=== PATIENT | female | born 1940 ===

== ENCOUNTER 2017-05-21 01:32 | Inpatient (IN) | payer MEDICARE, MEDICAID ==
[2017-05-21] VITALS (8 sets, daily range): BP systolic 117–143; BP diastolic 41–68
[~2017-05-21] VITALS: Ht 154.9 cm; Wt 97.5 kg
--- NOTE | 2017-05-21 01:48 | NUR ---
PT BIB FAMILY C/O FEVER X3 DAYS. ALSO C/O ABDOMINAL PAIN R/T HERNIA. DAUGHTER STATES PT HAS HX OF CANCER, AND IS BEING TREATED AT [facility], PENDING CHEMO, BUT IS NOT A CANDIDATE FOR SURGERY. PT A&O, AND ANSWERS APPROPRIATELY W/ USE OF RAILROAD CAR LETTERER. USES WHEELCHAIR.
--- NOTE | 2017-05-21 01:56 | NUR ---
JERONIMO PEREZ AT BEDSIDE FOR MSE.
[2017-05-21] MEDS ORDERED: HYDROMORPHONE 1 MG/1 ML DISP.SYRIN IV ONE (02:00)
[2017-05-21] MEDS ORDERED: ONDANSETRON 4 MG/2 ML VIAL IV ONE (02:00)
[2017-05-21] MEDS ORDERED: HYDROMORPHONE 2 MG/1 ML DISP.SYRIN ONE (02:19)
[2017-05-21] MEDS ORDERED: ONDANSETRON 4 MG/2 ML VIAL ONE (02:19)
[2017-05-21] MEDS ORDERED: TDAP DIPH,PERTUSS,TET VAC/PF 0.5 ML DISP.SYRIN IM ONE (02:24)
--- NOTE | 2017-05-21 02:40 | NUR ---
XRAY AT PT BEDSIDE.
[2017-05-21 02:44] LABS: BASOPHILS # (AUTO) 0.1 K/uL (0.0-8.0); BASOPHILS % (AUTO) 0.6 % (0.0-2.0); EOSINOPHILS % (AUTO) 0.3 % (0.0-7.0); HEMATOCRIT 22.6 % (31.2-41.9); LYMPHOCYTES # (AUTO) 1.4 K/uL (20.0-40.0); LYMPHOCYTES % (AUTO) 9.9 % (20.5-51.5); MEAN CORPUSCULAR HEMOGLOBIN 25.3 uug (24.7-32.8); MEAN CORPUSCULAR HGB CONC 32 g/dL (32.3-35.6); MONOCYTES # (AUTO) 0.9 K/uL (2.0-10.0); MONOCYTES % (AUTO) 6.1 % (0.0-11.0); NEUTROPHILS # (AUTO) 11.8 K/uL (1.8-8.9); NEUTROPHILS % (AUTO) 83.1 % (38.5-71.5); PLATELET COUNT (AUTO) 410 K/uL (179-408); RED BLOOD CELL COUNT(AUTO) 2.86 MIL/uL (3.63-4.92)
[2017-05-21 02:52] LABS: HEMOGLOBIN 7.2 g/dL (10.9-14.3)
[2017-05-21 02:54] LABS: WHITE BLOOD COUNT (AUTO) 14.2 K/uL (3.8-11.8)
[2017-05-21 03:00] LABS: ALANINE AMINOTRANSFERASE 22 U/L (14-59); ALKALINE PHOSPHATASE 108 U/L (50-136); ASPARTATE AMINOTRANSFERASE 36 U/L (15-37); BILIRUBIN,DIRECT 0.1 mg/dL (0.0-0.2); BILIRUBIN,TOTAL 0.3 mg/dL (0.2-1.0); CARBON DIOXIDE 23 mmol/L (21-32); CHLORIDE 95 mmol/L (98-107); CREATININE 1.1 mg/dL (0.6-1.3); GLUCOSE 129 mg/dL (74-106); LIPASE 147 U/L (73-393); POTASSIUM 4.4 mmol/L (3.5-5.1); TOTAL PROTEIN, SERUM 7.8 g/dL (6.4-8.2); UREA NITROGEN, BLOOD 21 mg/dL (7-18)
[2017-05-21] MEDS ORDERED: CEFTRIAXONE 1 G VIAL ONE (03:12)
[2017-05-21] MEDS ORDERED: HYDR-3326 PO (03:13)
[2017-05-21] MEDS ORDERED: METFO PO (03:13)
[2017-05-21] MEDS ORDERED: VALS160T2 PO (03:13)
[2017-05-21] MEDS ORDERED: GABA600T2 PO (03:13)
[2017-05-21] MEDS ORDERED: DOCU100C36 PO (03:13)
[2017-05-21] MEDS ORDERED: IBUP-1953 PO (03:13)
[2017-05-21] MEDS ORDERED: ASPI81TA31 PO (03:13)
[2017-05-21] MEDS ORDERED: CEFTRIAXONE 1 G in IV DEXTROSE 5% 50 ML IV ONE (03:15)
[2017-05-21] MEDS ORDERED: METFORMIN HCL PO (03:15)
[2017-05-21] MEDS ORDERED: NORMAL SALINE FLUSH 10 ML DISP.SYRIN ONE (03:34)
[2017-05-21] MEDS ORDERED: IV NORMAL SALINE 100 ML ONE (03:35)
[2017-05-21] MEDS ORDERED: IOHEXOL 300MG/ML 100 ML INFUS..BTL ONE (03:35)
--- NOTE | 2017-05-21 03:52 | NUR ---
PT TAKEN OUT OF ROOM FOR CT BY BREAKER ENGINEER VIA [employer]. VSS. NO DISTRESS NOTED AT THIS TIME.
--- NOTE | 2017-05-21 04:42 | NUR ---
PT RESTING IN A POSITION OF COMFORT W/ EYES CLOSED. NO DISTRESS NOTED. DAUGHTERS AT BEDSIDE.
[2017-05-21] MEDS ORDERED: PIPERACILLIN/TAZOBACTAM/D5W 50 ML IV ONE (05:13)
[2017-05-21] MEDS ORDERED: VANCOMYCIN IV 1,000 MG in IV DEXTROSE 5% 250 ML IV ONE (05:15)
[2017-05-21] MEDS ORDERED: PIPERACILLIN SODIUM/TAZOBACTAM 3.375 G in IV DEXTROSE 5% 50 ML IV ONE (05:15)
--- NOTE | 2017-05-21 05:23 | NUR ---
EPIC PAGED FOR PANEL.
[2017-05-21] MEDS ORDERED: VANCOMYCIN IV 200 ML ONE (05:25)
[2017-05-21] MEDS ORDERED: ACETAMINOPHEN 325 MG TABLET PO PRN (05:45)
[2017-05-21] MEDS ORDERED: Z GUARD REMEDY PASTE 57 GM TUBE TOP PRN (05:45)
[2017-05-21] MEDS ORDERED: MAGNESIUM HYDROXIDE 30 ML LIQUID UDC PO PRN (05:45)
[2017-05-21 07:03] LABS: *BILIRUBIN,URIN NEGATIVE (NEGATIVE); *BLOOD, URINE 2+ (NEGATIVE); *CLARITY,URINE CLOUDY (CLEAR); *COLOR,URINE YELLOW (YELLOW); *KETONES,URINE NEGATIVE (NEGATIVE); *PROTEIN,URINE NEGATIVE (NEGATIVE); *UROBILINOGEN,URINE 0.2 E.U./dl (NORMAL); LEUKOCYTE ESTERASE ,URINE 2+ (NEGATIVE); NITRITE, URINE NEGATIVE (NEGATIVE); UGLUCOSE NEGATIVE (NEGATIVE)
[2017-05-21 07:17] LABS: BACTERIA,URINE FEW /HPF (NONE SEEN); SQUAMOUS EPITHELIAL CELL,UR MODERATE /HPF (NONE SEEN)
[2017-05-21 07:20] LABS: TRANSITIONAL EPI CELLS,URINE FEW /LPF (NONE SEEN)
[2017-05-21] MEDS: IV NS 1000 ML 1,000 ML IV PRN (08:08)
[2017-05-21] MEDS: MORPHINE SULFATE 4 MG/1 ML DISP.SYRIN IV PRN ×2 (08:09→12:14)
[2017-05-21] MEDS ORDERED: PANTOPRAZOLE SODIUM 40 MG VIAL IV SCH (09:00)
--- NOTE | 2017-05-21 09:52 | NUR ---
Clinical pharmacy note-Vancomycin dosing per pharmacy Subjective: To start Vancomycin dosing on this 76 yo female patient for Cellulitis of abdominal wall. Objective: BUN 21 Scr 1.1 WBC 14.2 Temp 99.4 Ht 154.9 cm Wt 97.5 kg Assessment/Plan: Patient received vanco 1gm IV x1 today at 0600 in ED. Will start vanco 1250mg IVPB q24h for predicted vanco trough level of 17.4 mcg/ml at steady state. 1st dose of this regimen is due tomorrow at 0200. Will draw trough by 4th dose(not ordered yet). Will monitor renal function & will adjust the dose if needed. Will monitor daily.
[2017-05-21] MEDS ORDERED: DEXTROSE 50% 50 ML DISP.SYRIN IV PRN (12:00)
[2017-05-21] MEDS: PIPERACILLIN/TAZOBACTAM/D5W 50 ML IV SCH ×3 (12:11→23:36)
[2017-05-21] MEDS: GABAPENTIN 100 MG CAPSULE PO SCH ×2 (14:39→17:00)
[2017-05-21] MEDS: INSULIN REGULAR, HUMAN 300 UNIT/3 ML VIAL SQ PRN ×2 (16:58→20:18)
[2017-05-21] MEDS: BLOOD SUGAR DIAGNOSTIC 1 EACH STRIP VI SCH ×2 (16:59→20:23)
--- NOTE | 2017-05-21 19:30 | NUR ---
PT IN ROOM ALERT AWAKE IN NO ACUTE DISTRESS WITH DAUGHTER AT BEDSIDE. DENIES ANY PAIN OR DISCOMFORT AT THIS TIME. DAUGHTER STATES PT IS SOMETIMES ANXIOUS AND NEEDS MEDICATION FOR TONIGHT. NO S/S OF HYPER/HYPOGLYCEMIA. PT REMINDED TO CALL FOR ASSISTANCE WHEN NEEDED. CALL LIGHT PLACED WITHIN REACH. CONTINUE TO MONITOR. IV HYDRATION NS NOTED TO LEFT AC.
[2017-05-21] MEDS: PANTOPRAZOLE SODIUM 40 MG VIAL IV SCH (20:21)
[2017-05-21] MEDS: LORAZEPAM 1 MG TABLET PO PRN (20:23)
[2017-05-21] MEDS: HYDROCODONE/APAP 5-325MG TABLET PO PRN (22:13)
[2017-05-22] VITALS: BP 116/50
[2017-05-22] MEDS: VANCOMYCIN IV 1,250 MG in IV NORMAL SALINE 500 ML IV SCH (02:04)
--- NOTE | 2017-05-22 02:15 | NUR ---
PT IN ROOM IN NO ACUTE DISTRESS. STATES LOWER ABDOMINAL PAIN AND DAUGHTER AT BEDSIDE STATES PT MAY NEED PAIN MEDICATION. NO REACTION TO RECENT ZOSYN IV THERAPY. NEXT IV ATB VANCOMYCIN TO BE GIVEN ROUTINE. CONTINUE TO MONITOR. CALL LIGHT PLACED WITHIN REACH.
[2017-05-22] MEDS: HYDROCODONE/APAP 5-325MG TABLET PO PRN ×3 (02:19→23:55)
[2017-05-22] MEDS: IV NS 1000 ML 1,000 ML IV PRN ×2 (02:35→23:46)
[2017-05-22 04:00] VITALS: BP 121/50
[2017-05-22] MEDS: PIPERACILLIN/TAZOBACTAM/D5W 50 ML IV SCH ×4 (05:08→23:45)
--- NOTE | 2017-05-22 06:00 | NUR ---
PT IN ROOM ALERT AWAKE IN NO ACUTE DISTRESS. NO REACTION TO RECENT IV VANCOMYCIN AND ZOSYN THERAPY. LOWER ABDOMINAL PAIN RELIEVED FROM PREVIOUS NORCO GIVEN. V/S ARE WNL. DAUGHTER AT BEDSIDE. HOB ELEVATED 30 DEGREES AND CALL LIGHT PLACED WITHIN REACH. NO S/S OF HYPER/HYPOGLYCEMIA. CONTACT LENS LATHE OPERATOR NOTED SINUS RHYTHM. CONTINUE TO MONITOR.
[2017-05-22 06:20] LABS: BASOPHILS % (AUTO) 0.3 % (0.0-2.0); EOSINOPHILS % (AUTO) 0.2 % (0.0-7.0); HEMATOCRIT 23.5 % (31.2-41.9); HEMOGLOBIN 7.7 g/dL (10.9-14.3); LYMPHOCYTES # (AUTO) 1.1 K/uL (20.0-40.0); LYMPHOCYTES % (AUTO) 7.1 % (20.5-51.5); MEAN CORPUSCULAR HGB CONC 33 g/dL (32.3-35.6); MEAN CORPUSCULAR VOLUME 79.6 fL (75.5-95.3); MONOCYTES # (AUTO) 0.8 K/uL (2.0-10.0); MONOCYTES % (AUTO) 5.2 % (0.0-11.0); NEUTROPHILS % (AUTO) 87.2 % (38.5-71.5); PLATELET COUNT (AUTO) 359 K/uL (179-408); RED BLOOD CELL COUNT(AUTO) 2.96 MIL/uL (3.63-4.92); WHITE BLOOD COUNT (AUTO) 14.9 K/uL (3.8-11.8)
[2017-05-22 06:31] LABS: CARBON DIOXIDE 25 mmol/L (21-32); CHLORIDE 98 mmol/L (98-107); CHOLESTEROL 120 mg/dL (<200); GLUCOSE 145 mg/dL (74-106); HDL CHOLESTEROL 25 mg/dL (40-60); MAGNESIUM 1.7 mg/dL (1.8-2.4); PHOSPHOROUS 4.6 mg/dL (2.5-4.9); POTASSIUM 3.7 mmol/L (3.5-5.1); TRIGLYCERIDES 123 MG/DL (30-150); UREA NITROGEN, BLOOD 12 mg/dL (7-18)
[2017-05-22 06:39] LABS: THYROID STIMULATING HORMONE 5.667 mIU/mL (0.358-3.740)
[2017-05-22] MEDS: PANTOPRAZOLE SODIUM 40 MG VIAL IV SCH ×2 (08:32→21:36)
[2017-05-22] MEDS: GABAPENTIN 100 MG CAPSULE PO SCH ×3 (08:32→17:29)
[2017-05-22] MEDS: BLOOD SUGAR DIAGNOSTIC 1 EACH STRIP VI SCH ×4 (08:32→21:42)
[2017-05-22] MEDS: VALSARTAN 160 MG TABLET PO SCH ×2 (08:36→09:19)
[2017-05-22 11:30] VITALS: BP 104/40
[2017-05-22] MEDS: INSULIN REGULAR, HUMAN 300 UNIT/3 ML VIAL SQ PRN (11:54)
[2017-05-22] MEDS: MAGNESIUM SULFATE/D5W 100 ML IV SCH ×2 (12:44→13:55)
--- NOTE | 2017-05-22 13:51 | NUR ---
Clinical pharmacy note-Vancomycin dosing per pharmacy Subjective: To continue Vancomycin dosing on this 76 yo female patient for Cellulitis of abdominal wall. Objective: BUN 12 Scr 1.0 WBC 14.9 Temp 98.7 Ht 154.9 cm Wt 97.5 kg Assessment/Plan: Will continue vanco 1250mg IVPB q24h for predicted vanco trough level of 17.4 mcg/ml at steady state. 2nd dose due tomorrow am at 0200. Will draw trough by 4th dose(not ordered yet). Will monitor renal function & will adjust the dose if needed. Will monitor daily.
[2017-05-22 16:00] VITALS: BP 139/61
--- NOTE | 2017-05-22 17:52 | NUR ---
Patient resting in bed, in no distress. IVF infusing, no infiltration noted. Pain management and accucheck as ordered. VS stable, pt is afebrile. Assisted patient with toileting needs, commode at bedside. Family at bedside. Safety measures in place, call light within reach. Will continue to monitor.
[2017-05-22] MEDS: DOCUSATE SODIUM 100 MG CAPSULE PO PRN (18:19)
[2017-05-22] MEDS: ONDANSETRON 4 MG/2 ML VIAL IV PRN (18:35)
[2017-05-22] MEDS: FERROUS GLUCONATE 324 MG TABLET PO SCH ×2 (18:57→21:36)
[2017-05-22 20:00] VITALS: BP 136/53
[2017-05-22 20:49] VITALS: BP 136/53
[2017-05-22] MEDS: LORAZEPAM 1 MG TABLET PO PRN (21:36)
[2017-05-23] MEDS: VANCOMYCIN IV 1,250 MG in IV NORMAL SALINE 500 ML IV SCH (00:59)
[2017-05-23 04:00] VITALS: BP 102/42
--- NOTE | 2017-05-23 05:00 | NUR ---
RECEIVED HANDSOFF REPORT FROM JUVENTINO ABREU. DAUGHTER AT BEDSIDE. PT AWAKE. NO SIGNS OF DISTRESS. WILL CONTINUE TO MONITOR, SAFETY AND COMFORT PROVIDED.
[2017-05-23] MEDS: PIPERACILLIN/TAZOBACTAM/D5W 50 ML IV SCH ×4 (05:18→23:19)
[2017-05-23] MEDS: BLOOD SUGAR DIAGNOSTIC 1 EACH STRIP VI SCH ×3 (07:36→16:30)
[2017-05-23] MEDS: GABAPENTIN 100 MG CAPSULE PO SCH ×3 (10:00→17:46)
--- NOTE | 2017-05-23 10:30 | NUR ---
RECEIVED PT AOX4, PT WAS ABLE TO HAVE BOWEL MOVEMENT TODAY ON BSC. STOOL OB SENT TO LAB. VSS, NO C/O PAIN AND OR DISCOMFORT AT THIS TIME, FAMILY IS REQUESTING DOCTOR CALL SON, FOR VIABLE INFORMATION.
[2017-05-23] MEDS: VALSARTAN 160 MG TABLET PO SCH (10:31)
[2017-05-23] MEDS: FERROUS GLUCONATE 324 MG TABLET PO SCH ×2 (10:31→20:49)
[2017-05-23] MEDS: CYANOCOBALAMIN 1,000 MCG TABLET PO SCH (10:32)
[2017-05-23] MEDS: PANTOPRAZOLE SODIUM 40 MG VIAL IV SCH ×2 (10:36→20:49)
[2017-05-23 11:20] VITALS: BP 110/48
--- NOTE | 2017-05-23 12:32 | NUR ---
Clinical pharmacy note-Vancomycin dosing per pharmacy Subjective: To continue Vancomycin dosing on this 76 yo female patient for Cellulitis of abdominal wall. Objective: BUN 12 (05/22) Scr 1.0 (05/22) WBC 14.9 (05/22) Temp 99.2 Ht 154.9 cm Wt 97.5 kg Assessment/Plan: Will continue same dose of vanco 1250mg IVPB q24h for today. 3rd dose due tomorrow am at 0200. Will draw trough by 4th dose(not ordered yet). Will monitor renal function & will adjust the dose if needed. Will monitor daily.
[2017-05-23 12:55] LABS: *OCCULT BLOOD STOOL POSITIVE (NEGATIVE)
[2017-05-23] MEDS: HYDROCODONE/APAP 5-325MG TABLET PO PRN ×2 (15:35→16:37)
--- NOTE | 2017-05-23 15:36 | NUR ---
C/O 10/10 ABD PAIN, NORCO GIVEN, WILL F/U WITH PAIN ASSESSMENT.
[2017-05-23 15:48] VITALS: BP 122/54
--- NOTE | 2017-05-23 16:38 | NUR ---
2/10 ABD PAIN, PATIENT RESTING IN BED, FAMILY AT BEDSIDE.WILL CONTINUE TO MONITOR FOR SAFETY.
--- NOTE | 2017-05-23 18:09 | NUR ---
PT FAMILY HAS DECIDED NOT TO CONSENT FOR EGD FOR PEG PLACEMNT, PATIENT IS EATING AND IS MORE ALERT. Addendum: 05/23/17 at 1812 by PATRICK WALKER LVN DISREGARD LAST NOTE, THIS IS FOR ANOTHER PATIENT.
--- NOTE | 2017-05-23 18:13 | NUR ---
PT IS POSITIVE FOR OCCULT BLOOD IN STOOL, CHELE AWARE.
[2017-05-23] MEDS: FLUCONAZOLE 200 MG/NS 100ML IV 100 MG in PREMIXED 1 EACH IV SCH (20:39)
[2017-05-23 20:48] VITALS: BP 106/42
[2017-05-24] VITALS (10 sets, daily range): BP systolic 112–151; BP diastolic 31–56
[2017-05-24] MEDS: VANCOMYCIN IV 1,250 MG in IV NORMAL SALINE 500 ML IV SCH (01:20)
[2017-05-24] MEDS: PIPERACILLIN/TAZOBACTAM/D5W 50 ML IV SCH ×4 (05:03→18:00)
[2017-05-24] MEDS: DOCUSATE SODIUM 100 MG CAPSULE PO PRN (05:13)
[2017-05-24] MEDS: HYDROCODONE/APAP 5-325MG TABLET PO PRN ×2 (05:16→12:33)
[2017-05-24] MEDS: ONDANSETRON 4 MG/2 ML VIAL IV PRN (05:29)
--- NOTE | 2017-05-24 06:17 | NUR ---
Patient slept intermittently throughout the night with daughter at bedside. Complained of "discomfort" at IV site to right antecubital, but is not painful. Patient agreed to keep IV in place to run the antibiotics overnight and will try to place a new IV at a different site in the morning. Although pt had a BM, unable to get stool sample due to contamination with urine. Assist to bedside commode as needed. Administered PRN Ramsay and Colace for pain and constipation. Pt complained the Colace gives her nausea so requests to not take it anymore. Zofran administered and effective.
--- NOTE | 2017-05-24 06:49 | NUR ---
Received a call from Lab stating pt's hemoglobin is 6.8 from this morning's draw. Patient is not currently bleeding and no bleeding was noted when wiping patient after her bowel movement. Lab will come back and redraw the labs. Will endorse to AM nurse.
[2017-05-24 06:57] LABS: ALANINE AMINOTRANSFERASE 13 U/L (14-59); ALKALINE PHOSPHATASE 95 U/L (50-136); ASPARTATE AMINOTRANSFERASE 22 U/L (15-37); BILIRUBIN,TOTAL 0.5 mg/dL (0.2-1.0); CARBON DIOXIDE 24 mmol/L (21-32); CHLORIDE 98 mmol/L (98-107); GLUCOSE 135 mg/dL (74-106); MAGNESIUM 1.6 mg/dL (1.8-2.4); PHOSPHOROUS 3.2 mg/dL (2.5-4.9); POTASSIUM 3.5 mmol/L (3.5-5.1); TOTAL PROTEIN, SERUM 6.5 g/dL (6.4-8.2); UREA NITROGEN, BLOOD 9 mg/dL (7-18)
--- NOTE | 2017-05-24 08:30 | NUR ---
AWAKE COOPERATE WELL NO SOB OR PAIN AT THIS TIME RESTING WITH BED ALARM ON AND CALL LIGHT IN REACH
[2017-05-24] MEDS: PANTOPRAZOLE SODIUM 40 MG VIAL IV SCH ×4 (08:47→20:30)
[2017-05-24] MEDS: GABAPENTIN 100 MG CAPSULE PO SCH ×3 (08:47→17:02)
[2017-05-24] MEDS: FERROUS GLUCONATE 324 MG TABLET PO SCH ×2 (08:47→20:30)
[2017-05-24] MEDS: CYANOCOBALAMIN 1,000 MCG TABLET PO SCH (08:47)
--- NOTE | 2017-05-24 09:00 | NUR ---
DR LUEVANO WAS INFORM OF AM LAB RESULT AND IV WAS OUT ,UNABLE TO RESTART IT MID LINE INSERTION WAS ORDER
[2017-05-24 10:01] LABS: MONOCYTES # (AUTO) 0.6 K/uL (2.0-10.0)
[2017-05-24 10:02] LABS: BASOPHILS # (AUTO) 0.1 K/uL (0.0-8.0); BASOPHILS % (AUTO) 0.4 % (0.0-2.0); EOSINOPHILS % (AUTO) 0.2 % (0.0-7.0); HEMATOCRIT 22.9 % (31.2-41.9); LYMPHOCYTES # (AUTO) 1.2 K/uL (20.0-40.0); LYMPHOCYTES % (AUTO) 8.4 % (20.5-51.5); MEAN CORPUSCULAR HEMOGLOBIN 26.1 uug (24.7-32.8); MEAN CORPUSCULAR HGB CONC 33 g/dL (32.3-35.6); MEAN CORPUSCULAR VOLUME 79.4 fL (75.5-95.3); MONOCYTES % (AUTO) 4.2 % (0.0-11.0); NEUTROPHILS # (AUTO) 12.3 K/uL (1.8-8.9); NEUTROPHILS % (AUTO) 86.8 % (38.5-71.5); PLATELET COUNT (AUTO) 397 K/uL (179-408); RED BLOOD CELL COUNT(AUTO) 2.89 MIL/uL (3.63-4.92); WHITE BLOOD COUNT (AUTO) 14.1 K/uL (3.8-11.8)
[2017-05-24 10:09] LABS: HEMOGLOBIN 7.5 g/dL (10.9-14.3)
[2017-05-24] MEDS ORDERED: FUROSEMIDE 20 MG/2 ML VIAL IV PRN (10:30)
--- NOTE | 2017-05-24 12:00 | NUR ---
PATIENT AND FAMILY WAS TOLD TO WAITING MIDLINE NURSE FOR PROCEDURE AND WILL GIVE ANTIBIOTICS MEDICINE AND TRANSFUSION 1 UNIT OF PRBC TODAY CONSENT WAS SIGNS
--- NOTE | 2017-05-24 14:18 | NUR ---
Clinical pharmacy note-Vancomycin dosing per pharmacy Subjective: To continue Vancomycin dosing on this 76 yo female patient for Cellulitis of abdominal wall. Objective: BUN 9 Scr 1.0 WBC 14.1 Temp 99.2 Ht 154.9 cm Wt 97.5 kg Assessment/Plan: Will continue same dose of vanco 1250mg IVPB q24h for today. Trough due tomorrow early am at 0130, RN endorsed to hold dose if >20. Will check level in am and adjust as needed. Will monitor renal function & will adjust the dose if needed. Will monitor daily.
[2017-05-24] MEDS: MAGNESIUM SULFATE/D5W 100 ML IV SCH ×2 (15:15→16:25)
--- NOTE | 2017-05-24 15:50 | NUR ---
START BLOOD TRANSFUSION CHERYL PROCEDURE WELL NO REACTION NOTED RESTING VS STABLE
--- NOTE | 2017-05-24 17:30 | NUR ---
MOST OF THE TIME RESTING WELL NO SOB OR PAIN HEMODYNAMIC STATUS STABLE PAIN UNDER CONTROL ON FALL /ASPIRATION PRECAUTION BED ALARM ON AND CALL MATOS WITHIN REACH
--- NOTE | 2017-05-24 18:40 | NUR ---
BLLOD TRANSFUSION COMPLETE NO REACTION VS TAKEN STABLE LASIX IVP GIVEN ORDER AFTER BLOOD COMPLETE
[2017-05-24] MEDS: FLUCONAZOLE 200 MG/NS 100ML IV 100 MG in PREMIXED 1 EACH IV SCH (18:46)
--- NOTE | 2017-05-24 19:45 | NUR ---
RECEIVED PATIENT IN BED, NO SOB NO CHEST PAIN, NO COMPLAIN OF PAIN AT THIS TIME. SEEN BY ZACARIAS PACK WANTED GI CONSULTS, NOTIFY DR. ELAINE SAID OK. FAMILY AT BEDSIDE. MIDLINE ON R UPPER ARM PATENT, CONT TO MONITOR.
[2017-05-24] MEDS ORDERED: LEVOFLOXACIN 500 MG/D5W 100 ML ONE (22:48)
[2017-05-24] MEDS: LEVOFLOXACIN 500 MG/D5W 500 MG in PREMIXED 1 EACH IV SCH (23:05)
[2017-05-24] MEDS: IV NS 1000 ML 1,000 ML IV PRN (23:10)
[2017-05-24] MEDS: LINEZOLID IV 600 MG in PREMIXED 1 EACH IV SCH (23:58)
[2017-05-25] MEDS: HYDROCODONE/APAP 5-325MG TABLET PO PRN ×4 (01:57→23:10)
[2017-05-25 04:42] VITALS: BP 105/50
--- NOTE | 2017-05-25 06:25 | NUR ---
PATIENT SLEPT MOST OF THE NIGHT, NO SOB NO CHEST PAIN, MEDICATED ONE TIME OF ABDOMINAL PAIN, PERMA CATH ON R SUBCLAVIAN SITE INTACT, NO BLEEDING NOTED, STAFFORD CATH PATENT DRAINING WITH YELLOW COLOR URINE IN MODERATE AMOUNT, NO S/S OF HYPO/HYPERGLYCEMIA NOTED, OXYGEN SAT WNL NO SOB NOTED, CONT TO MONITOR. Addendum: 05/25/17 at 0657 by DANIEL CARLOS RN PATIENT SLEPT MOST OF NIGHT NO SOB NO CHEST PAIN, MEDICATED ONE TIME OF ABDOMINAL PAIN, PERMA CATH ON R SUBCLAVIAN SITE INTACT, NO BLEEDING NOTED, STAFFORD CATH PATENT DRAINING YELLOW COLOR URINE IN MODERATE AMOUNT NO S/S OF HYPO/HYPERGLYCEMIA NOTED OXYGEN SAT WNL NO SOB NOTED, CONT TO MONITOR, CHARTING IN ERROR.
--- NOTE | 2017-05-25 06:57 | NUR ---
PATIENT SLEPT MOST OF THE NIGHT, NO SOB NO CHEST PAIN, CONT ON PAIN MANAGEMENT, ASSISTED WITH TOILETING, MIDLINE R UPPER ARM INTACT, PATENT, DAUGHTER AT BEDSIDE, CONT TO MONITOR.
[2017-05-25 07:59] LABS: CARBON DIOXIDE 30 mmol/L (21-32); CHLORIDE 98 mmol/L (98-107); CREATININE 0.9 mg/dL (0.6-1.3); GLUCOSE 104 mg/dL (74-106); POTASSIUM 3.3 mmol/L (3.5-5.1); UREA NITROGEN, BLOOD 9 mg/dL (7-18)
[2017-05-25 08:00] LABS: MAGNESIUM 1.8 mg/dL (1.8-2.4)
[2017-05-25] MEDS: GABAPENTIN 100 MG CAPSULE PO SCH ×3 (09:21→16:57)
[2017-05-25] MEDS: CYANOCOBALAMIN 1,000 MCG TABLET PO SCH (09:21)
[2017-05-25] MEDS: FERROUS GLUCONATE 324 MG TABLET PO SCH ×2 (09:21→21:00)
[2017-05-25] MEDS: PANTOPRAZOLE SODIUM 40 MG VIAL IV SCH ×2 (09:22→21:00)
[2017-05-25] MEDS: LINEZOLID IV 600 MG in PREMIXED 1 EACH IV SCH ×2 (09:22→22:58)
[2017-05-25] MEDS ORDERED: POTASSIUM CHLORIDE 20 MEQ TAB.PRT.SR PO ONE (10:15)
[2017-05-25] MEDS: ONDANSETRON 4 MG/2 ML VIAL IV PRN (10:28)
--- NOTE | 2017-05-25 10:32 | NUR ---
pt seen on rounding. pt vitals stable. pt on 2 liters oxygen. no sob noted. iv site intact and running. pt has vre. pt placed on isolation. pt given potassium for low levels. pt given zyox for sensitivity. pt given zofran for nausea. md aware of nausea. will continue to monitor.
[2017-05-25 11:46] LABS: BASOPHILS % (AUTO) 0.3 % (0.0-2.0); EOSINOPHILS % (AUTO) 0.3 % (0.0-7.0); HEMOGLOBIN 8.4 g/dL (10.9-14.3); LYMPHOCYTES # (AUTO) 1.2 K/uL (20.0-40.0); LYMPHOCYTES % (AUTO) 9.9 % (20.5-51.5); MEAN CORPUSCULAR HEMOGLOBIN 26.7 uug (24.7-32.8); MEAN CORPUSCULAR HGB CONC 33 g/dL (32.3-35.6); MEAN CORPUSCULAR VOLUME 81.2 fL (75.5-95.3); MONOCYTES # (AUTO) 0.8 K/uL (2.0-10.0); MONOCYTES % (AUTO) 6.7 % (0.0-11.0); NEUTROPHILS # (AUTO) 9.6 K/uL (1.8-8.9); NEUTROPHILS % (AUTO) 82.8 % (38.5-71.5); PLATELET COUNT (AUTO) 413 K/uL (179-408); RED BLOOD CELL COUNT(AUTO) 3.13 MIL/uL (3.63-4.92); WHITE BLOOD COUNT (AUTO) 11.6 K/uL (3.8-11.8)
[2017-05-25 11:48] LABS: HEMATOCRIT 25.4 % (31.2-41.9)
[2017-05-25 15:55] VITALS: BP 130/52
[2017-05-25] MEDS: IV NS 1000 ML 1,000 ML IV PRN (16:04)
--- NOTE | 2017-05-25 18:14 | NUR ---
pt stable throughout the day.pt H H stable. no transfusion needed or ordered. pt given norco for pain instead of morphine injection due to drowsiness. pt seen by dr ellen morales and recommended pt for gi follow up. iv site running and intact. no loc changes. will endorse to environmental field office manager nurse.
--- NOTE | 2017-05-25 19:04 | NUR ---
md aware of vitals. md ordered to monitor. pt.
--- NOTE | 2017-05-25 20:00 | NUR ---
RECEIVED IN BED ALERT ORIENTED, NO SOB NO CHEST PAIN, NO COMPLAIN OF PAIN AT THIS TIME, NO S/S OF HYPO/HYPERGLYCEMIA NOTED, FAMILY AT BEDSIDE. CONT ON CONTACT ISOLATION VRE URINE, CONT TO MONITOR.
[2017-05-25] MEDS: FLUCONAZOLE 200 MG/NS 100ML IV 100 MG in PREMIXED 1 EACH IV SCH (20:20)
[2017-05-25 20:36] VITALS: BP 131/49
[2017-05-25] MEDS: LEVOFLOXACIN 500 MG/D5W 500 MG in PREMIXED 1 EACH IV SCH (21:47)
[2017-05-26] VITALS (11 sets, daily range): BP systolic 114–148; BP diastolic 45–59
--- NOTE | 2017-05-26 06:31 | NUR ---
PATIENT SLEPT MOST OF THE NIGHT, CONT PAIN MANAGEMENT, REMAIN IN CONTACT ISOLATION, CONT OXYGEN SAT 94-95%, HAD BOWEL MOVEMENT TODAY. CONT TO MONITOR.
[2017-05-26 06:50] LABS: BASOPHILS % (AUTO) 0.1 % (0.0-2.0); EOSINOPHILS % (AUTO) 0.3 % (0.0-7.0); HEMATOCRIT 22.7 % (31.2-41.9); HEMOGLOBIN 7.5 g/dL (10.9-14.3); LYMPHOCYTES # (AUTO) 1.3 K/uL (20.0-40.0); LYMPHOCYTES % (AUTO) 10.6 % (20.5-51.5); MEAN CORPUSCULAR HEMOGLOBIN 26.6 uug (24.7-32.8); MEAN CORPUSCULAR HGB CONC 33 g/dL (32.3-35.6); MEAN CORPUSCULAR VOLUME 80.8 fL (75.5-95.3); MONOCYTES # (AUTO) 0.8 K/uL (2.0-10.0); MONOCYTES % (AUTO) 6.1 % (0.0-11.0); NEUTROPHILS # (AUTO) 10.3 K/uL (1.8-8.9); NEUTROPHILS % (AUTO) 82.9 % (38.5-71.5); PLATELET COUNT (AUTO) 435 K/uL (179-408); RED BLOOD CELL COUNT(AUTO) 2.81 MIL/uL (3.63-4.92); WHITE BLOOD COUNT (AUTO) 12.4 K/uL (3.8-11.8)
[2017-05-26 07:07] LABS: ALANINE AMINOTRANSFERASE 13 U/L (14-59); ALKALINE PHOSPHATASE 92 U/L (50-136); ASPARTATE AMINOTRANSFERASE 20 U/L (15-37); BILIRUBIN,TOTAL 0.3 mg/dL (0.2-1.0); CARBON DIOXIDE 28 mmol/L (21-32); CHLORIDE 100 mmol/L (98-107); CREATININE 0.8 mg/dL (0.6-1.3); GLUCOSE 118 mg/dL (74-106); PHOSPHOROUS 3.5 mg/dL (2.5-4.9); POTASSIUM 3.8 mmol/L (3.5-5.1); TOTAL PROTEIN, SERUM 6.8 g/dL (6.4-8.2); UREA NITROGEN, BLOOD 8 mg/dL (7-18)
[2017-05-26 07:23] LABS: MAGNESIUM 1.5 mg/dL (1.8-2.4)
[2017-05-26] MEDS: CYANOCOBALAMIN 1,000 MCG TABLET PO SCH (07:59)
[2017-05-26] MEDS: FERROUS GLUCONATE 324 MG TABLET PO SCH ×2 (07:59→21:46)
[2017-05-26] MEDS: GABAPENTIN 100 MG CAPSULE PO SCH ×3 (07:59→17:30)
[2017-05-26] MEDS: LINEZOLID IV 600 MG in PREMIXED 1 EACH IV SCH ×2 (08:00→21:46)
[2017-05-26] MEDS: HYDROCODONE/APAP 5-325MG TABLET PO PRN (08:00)
[2017-05-26] MEDS: FUROSEMIDE 20 MG/2 ML VIAL IV SCH (08:00)
--- NOTE | 2017-05-26 08:00 | NUR ---
AWAKE ALERT COOPERATE WELL C/O OF ABD PAIN MED PO NORCO GIVEN ORDER NO SOB CONTINUE O2 AT 3L/VIA N/C NO ACUTE DISTRESS ON FALL PRECAUTION CALL LIGHT IN REACH AND INSTRUCTION TO CALL WHEN NEEDED
[2017-05-26] MEDS: IV NS 1000 ML 1,000 ML IV PRN (08:08)
[2017-05-26] MEDS: PANTOPRAZOLE SODIUM 40 MG VIAL IV SCH (08:56)
[2017-05-26] MEDS ORDERED: FUROSEMIDE 20 MG/2 ML VIAL IV PRN (12:00)
[2017-05-26] MEDS: MORPHINE SULFATE 4 MG/1 ML DISP.SYRIN IV PRN ×2 (14:00→21:00)
[2017-05-26] MEDS: MAGNESIUM SULFATE/D5W 100 ML IV SCH ×2 (14:29→15:34)
--- NOTE | 2017-05-26 15:15 | NUR ---
START BLOOD TRANSFUSION 1 UNIT TODAY CHERYL PROCEDURE WELL VS STABLE NO REACTION NOTED FAMILY AT BEDSIDE
[2017-05-26] MEDS: PANTOPRAZOLE SODIUM 40 MG TABLET.DR PO SCH (17:30)
--- NOTE | 2017-05-26 18:10 | NUR ---
blood transfusion FINISHED VS STABLE NO REACTION
--- NOTE | 2017-05-26 18:20 | NUR ---
MOST OF THE TIME RESTING WELL IN BED NO ACUTE DISTRESS PAIN UNDER CONTROL SAFETY MEASURE PROVIDED CALL LIGHT IN REACH AND BED ALARM ON
[2017-05-26] MEDS: FLUCONAZOLE 200 MG/NS 100ML IV 100 MG in PREMIXED 1 EACH IV SCH (18:51)
--- NOTE | 2017-05-26 19:25 | NUR ---
RECEIVED PT AWAKE, ALERT AND ORIENTEDX3. [id number] AT BEDSIDE. PT IV INTACT AND PATENT. PT SHOWS NO SIGNS OF DISTRESS.CALL LIGHT WITHIN REACH. SAFETY AND COMFORT PROVIDED . WILL CONTINUE TO MONITOR.
--- NOTE | 2017-05-26 20:35 | NUR ---
ORDERED PT TO HAVE NPO AT MIDNIGHT. PT TO HAVE EGD AND COLONOSCOPY.ORDERED BOWEL PREPARATION FOR PT. [id number] AND MAGNESIUM CITRATE 16OZ. NEED CONSENT FORM FOR THE PROCEDURE.
[2017-05-26] MEDS ORDERED: MAGNESIUM CITRATE 296 ML BOTTLE PO ONE (20:45)
[2017-05-26] MEDS ORDERED: BISACODYL 5 MG TABLET.DR PO ONE (20:45)
--- NOTE | 2017-05-26 21:00 | NUR ---
GAVE PAIN MEDICATION TO THE PT. IT DIDN'T SCAN AND SAVE. IT WAS WITNESS IN THE PYXIS BY A COSIGNER RN.
[2017-05-26] MEDS: LEVOFLOXACIN 500 MG/D5W 500 MG in PREMIXED 1 EACH IV SCH (21:47)
--- NOTE | 2017-05-26 23:10 | NUR ---
PT CONSENT FORM ON CHART FOR THE PROCEDURE TO BE DONE TOMORROW. PT HAVE 2 BOWEL MOVEMENT AND HAVE EMESIS. GIVEN ZOFRAN FOR THE PT. PT VOMITTING RESOLVE. WILL CONTINUE TO MONITOR.
[2017-05-26] MEDS: ONDANSETRON 4 MG/2 ML VIAL IV PRN (23:39)
[2017-05-27 04:00] VITALS: BP 157/71
[2017-05-27] MEDS: PANTOPRAZOLE SODIUM 40 MG TABLET.DR PO SCH ×3 (06:33→18:30)
--- NOTE | 2017-05-27 06:50 | NUR ---
PT BOWEL PREP DONE. PT HAD 4 BM ON MY SHIFT. LAST BM WAS WATERY BLACK STOOL. SHOWS NO SIGNS OF DISTRESS. IV INTACT AND PATENT.CALL LIGHT WITHIN REACH.DAUGHTER AT BEDSIDE. ALL PRESCRIBED MEDICATIONS GIVEN. PT TOLERATED IT WELL.SAFETY AND COMFORT PROVIDED.
[2017-05-27 07:52] LABS: CARBON DIOXIDE 30 mmol/L (21-32); CHLORIDE 97 mmol/L (98-107); CREATININE 0.9 mg/dL (0.6-1.3); GLUCOSE 116 mg/dL (74-106); MAGNESIUM 2.3 mg/dL (1.8-2.4); PHOSPHOROUS 4.1 mg/dL (2.5-4.9); POTASSIUM 3.3 mmol/L (3.5-5.1); UREA NITROGEN, BLOOD 9 mg/dL (7-18)
--- NOTE | 2017-05-27 08:00 | NUR ---
AWAKE COOPERATE WELL NO SOB OR PAIN NPO FOR EGD AND COLONOSCOPY TODAY CONSENT SIGNS AND CHECK LIST COMPLETE RESTING WELL IN BED WITH CALL LIGHT IN REACH FAMILY AT BEDSIDE
[2017-05-27 08:07] LABS: BASOPHILS % (AUTO) 0.3 % (0.0-2.0); EOSINOPHILS % (AUTO) 0.2 % (0.0-7.0); LYMPHOCYTES # (AUTO) 1.5 K/uL (20.0-40.0); LYMPHOCYTES % (AUTO) 13.4 % (20.5-51.5); MEAN CORPUSCULAR HEMOGLOBIN 27.4 uug (24.7-32.8); MEAN CORPUSCULAR HGB CONC 33 g/dL (32.3-35.6); MEAN CORPUSCULAR VOLUME 82.5 fL (75.5-95.3); MONOCYTES # (AUTO) 0.6 K/uL (2.0-10.0); MONOCYTES % (AUTO) 5.2 % (0.0-11.0); NEUTROPHILS # (AUTO) 9.3 K/uL (1.8-8.9); NEUTROPHILS % (AUTO) 80.9 % (38.5-71.5); PLATELET COUNT (AUTO) 474 K/uL (179-408); RED BLOOD CELL COUNT(AUTO) 3.11 MIL/uL (3.63-4.92); WHITE BLOOD COUNT (AUTO) 11.5 K/uL (3.8-11.8)
[2017-05-27 08:27] LABS: HEMATOCRIT 25.7 % (31.2-41.9); HEMOGLOBIN 8.5 g/dL (10.9-14.3)
[2017-05-27] MEDS: FUROSEMIDE 20 MG/2 ML VIAL IV SCH (08:45)
[2017-05-27] MEDS: LINEZOLID IV 600 MG in PREMIXED 1 EACH IV SCH ×2 (08:45→22:10)
[2017-05-27] MEDS: CYANOCOBALAMIN 1,000 MCG TABLET PO SCH (08:45)
[2017-05-27] MEDS: FERROUS GLUCONATE 324 MG TABLET PO SCH ×2 (08:45→20:11)
[2017-05-27] MEDS: GABAPENTIN 100 MG CAPSULE PO SCH ×4 (08:45→18:30)
--- NOTE | 2017-05-27 09:00 | NUR ---
ASSIST TO USE MARCO ANTONIO FRANK AM PATIENT HAVE BMX2 FIRST WAS SMALL SOFT WITH LIQ AND ANOTHER WAS LIQ GREEN WITH SMALL PARTICLE
[2017-05-27 11:00] VITALS: BP 144/61
--- NOTE | 2017-05-27 14:30 | NUR ---
DR DINH WAS CALL AND PATIENT CONDITION OF BM DOES NOT CLEAR AT THIS TIME TWE GIVEN TO PATIENT ORDER AND HAVING MOD GREEN LOOSE BM AT THIS TIME
[2017-05-27] MEDS: MORPHINE SULFATE 4 MG/1 ML DISP.SYRIN IV PRN ×2 (14:47→20:25)
--- NOTE | 2017-05-27 14:47 | NUR ---
C/O OF ABD PAIN MORPHINE 2MG IVP GIVEN ORDER RESTING IN BED WITH CALL MATOS IN REACH
[2017-05-27 14:52] VITALS: BP 167/68
--- NOTE | 2017-05-27 15:00 | NUR ---
RESTING WELL PAIN RELIEF VS STABLE
--- NOTE | 2017-05-27 16:20 | NUR ---
TO GI LAB VIA BED CONDITION STABLE NO SOB OR PAIN
[2017-05-27 18:00] VITALS: BP 146/64
--- NOTE | 2017-05-27 18:00 | NUR ---
BACK TO ROOM AWAKE COOPERATE WELL NO SOB OR PAIN VS TAKEN STABLE FAMILY AT BEDSIDE
--- NOTE | 2017-05-27 18:20 | NUR ---
RESTING WELL NO ACUTE DISTRESS FAMILY AT BEDSIDE SAFETY MEASURE PROVIDED CALL LIGHT IN REACH AND REMIND TO CALL WHEN NEEDED
[2017-05-27] MEDS: FLUCONAZOLE 200 MG/NS 100ML IV 100 MG in PREMIXED 1 EACH IV SCH (18:51)
[2017-05-27 20:00] VITALS: BP 145/55
[2017-05-27] MEDS ORDERED: POTASSIUM CHLORIDE 10 MEQ in IV NORMAL SALINE 50 ML IV SCH (20:00)
[2017-05-27] MEDS: POTASSIUM CHLORIDE 10 MEQ in IV NORMAL SALINE 50 ML IV SCH ×2 (20:11→21:15)
[2017-05-27] MEDS: LEVOFLOXACIN 500 MG/D5W 500 MG in PREMIXED 1 EACH IV SCH (23:24)
[2017-05-28] VITALS (11 sets, daily range): BP systolic 79–152; BP diastolic 43–76
[2017-05-28] MEDS: MORPHINE SULFATE 4 MG/1 ML DISP.SYRIN IV PRN ×3 (04:28→20:22)
--- NOTE | 2017-05-28 06:15 | NUR ---
Pt slept well through the night. Assisted to commode as needed. No significant changes occured. Complained of back/abdomen pain and relieved with PRN morphine. Daughter at bedside. Bed in low position, locked, with call light within reach. Continues on contact isolation.
[2017-05-28] MEDS: PANTOPRAZOLE SODIUM 40 MG TABLET.DR PO SCH ×2 (06:39→16:20)
[2017-05-28 07:44] LABS: ALANINE AMINOTRANSFERASE 12 U/L (14-59); ALKALINE PHOSPHATASE 82 U/L (50-136); ASPARTATE AMINOTRANSFERASE 26 U/L (15-37); BILIRUBIN,TOTAL 0.2 mg/dL (0.2-1.0); CARBON DIOXIDE 30 mmol/L (21-32); CHLORIDE 99 mmol/L (98-107); CREATININE 0.8 mg/dL (0.6-1.3); GLUCOSE 115 mg/dL (74-106); MAGNESIUM 1.8 mg/dL (1.8-2.4); PHOSPHOROUS 3.9 mg/dL (2.5-4.9); POTASSIUM 3.3 mmol/L (3.5-5.1); TOTAL PROTEIN, SERUM 6.7 g/dL (6.4-8.2); UREA NITROGEN, BLOOD 8 mg/dL (7-18)
[2017-05-28 07:56] LABS: BASOPHILS % (AUTO) 0.3 % (0.0-2.0); EOSINOPHILS % (AUTO) 0.3 % (0.0-7.0); HEMATOCRIT 24.1 % (31.2-41.9); HEMOGLOBIN 7.9 g/dL (10.9-14.3); LYMPHOCYTES # (AUTO) 1.4 K/uL (20.0-40.0); LYMPHOCYTES % (AUTO) 11.9 % (20.5-51.5); MEAN CORPUSCULAR HEMOGLOBIN 27.3 uug (24.7-32.8); MEAN CORPUSCULAR HGB CONC 33 g/dL (32.3-35.6); MEAN CORPUSCULAR VOLUME 83.4 fL (75.5-95.3); MONOCYTES # (AUTO) 0.6 K/uL (2.0-10.0); MONOCYTES % (AUTO) 5.3 % (0.0-11.0); NEUTROPHILS # (AUTO) 9.8 K/uL (1.8-8.9); NEUTROPHILS % (AUTO) 82.2 % (38.5-71.5); PLATELET COUNT (AUTO) 506 K/uL (179-408); RED BLOOD CELL COUNT(AUTO) 2.89 MIL/uL (3.63-4.92); WHITE BLOOD COUNT (AUTO) 11.9 K/uL (3.8-11.8)
--- NOTE | 2017-05-28 07:57 | NUR ---
RECEIVED SHIFT REPORT FROM ACADEMIC ASSISTANT NURSE. PT RESTING COMFORTABLY IN BED AT THIS TIME HAVING BREAKFAST. STABLE CONDITION, NO S/S OF DISTRESS. DAUGHTER AT BEDSIDE. PT A/OX3, [place]GI[place] SPEAKING ONLY. WILL CONTINUE TO MONITOR. CALL LIGHT WITHIN REACH. BED ALARM ON.
[2017-05-28] MEDS: GABAPENTIN 100 MG CAPSULE PO SCH ×3 (08:06→16:20)
[2017-05-28] MEDS: CYANOCOBALAMIN 1,000 MCG TABLET PO SCH (08:08)
[2017-05-28] MEDS: FUROSEMIDE 20 MG/2 ML VIAL IV SCH (08:08)
[2017-05-28] MEDS: FERROUS GLUCONATE 324 MG TABLET PO SCH ×2 (08:08→20:47)
[2017-05-28] MEDS: LINEZOLID IV 600 MG in PREMIXED 1 EACH IV SCH ×2 (09:29→21:57)
[2017-05-28] MEDS ORDERED: FUROSEMIDE 20 MG/2 ML VIAL IV PRN (11:15)
[2017-05-28] MEDS ORDERED: POTASSIUM CHLORIDE 20 MEQ TAB.PRT.SR PO ONE (14:15)
--- NOTE | 2017-05-28 19:43 | NUR ---
HGB LEVELS 7.9 IN AM LABS. MD ORDERED TO HAVE TYPE AND CROSS AND TO HAVE 1 UNIT OF PRBC TRANSFUSED. BLOOD IS BEING TRANSFUSED AT THIS TIME. NO SIGNS OF ADVERSE REACTIONS, NO SIGNS OF RESPIRATORY DISTRESS, NO RISE IN TEMPERATURE. VITAL SIGNS HAVE BEEN STABLE.
[2017-05-28] MEDS: FLUCONAZOLE 200 MG/NS 100ML IV 100 MG in PREMIXED 1 EACH IV SCH (20:47)
[2017-05-28] MEDS: LEVOFLOXACIN 500 MG/D5W 500 MG in PREMIXED 1 EACH IV SCH (23:57)
[2017-05-29] MEDS: MORPHINE SULFATE 4 MG/1 ML DISP.SYRIN IV PRN ×4 (01:28→21:34)
[2017-05-29 04:00] VITALS: BP 125/62
--- NOTE | 2017-05-29 05:01 | NUR ---
Completed blood transfusion at 2030 last night. No adverse reaction noted. Pt continues on contact isolation. Slept intermittently through the night. Assisted to bedside commode as needed. Noted continues with stool that appears as coffee grounds and black. C/O back and abdomen pain in which PRN morphine was administered and effective. Vital signs stable as of this morning.
[2017-05-29] MEDS: PANTOPRAZOLE SODIUM 40 MG TABLET.DR PO SCH ×2 (06:08→17:16)
[2017-05-29] MEDS: IV NS 1000 ML 1,000 ML IV PRN (06:10)
[2017-05-29 07:05] LABS: CARBON DIOXIDE 30 mmol/L (21-32); CHLORIDE 99 mmol/L (98-107); CREATININE 0.8 mg/dL (0.6-1.3); GLUCOSE 116 mg/dL (74-106); POTASSIUM 3.5 mmol/L (3.5-5.1); UREA NITROGEN, BLOOD 8 mg/dL (7-18)
[2017-05-29] MEDS: CYANOCOBALAMIN 1,000 MCG TABLET PO SCH (08:28)
[2017-05-29] MEDS: GABAPENTIN 100 MG CAPSULE PO SCH ×3 (08:28→17:16)
[2017-05-29] MEDS: FERROUS GLUCONATE 324 MG TABLET PO SCH ×2 (08:28→20:17)
[2017-05-29] MEDS: FUROSEMIDE 20 MG/2 ML VIAL IV SCH (08:29)
[2017-05-29] MEDS: LINEZOLID IV 600 MG in PREMIXED 1 EACH IV SCH ×2 (08:41→21:17)
--- NOTE | 2017-05-29 10:30 | NUR ---
SBAR report received at bedside, board updated. Pt awake, alert, and oriented. Pt assessed, no SOB, but c/o pain 10/10 to lower back and abdomen. Morphine administered per PRN orders. Pain management effective as reported of a tolerable 4/10 pain level. Pt compliant with all routinely scheduled medication administration. Pt assisted to bedside commode x2 for voiding. Call light placed within reach. Bed in locked and lowest position, with side rails up x2. Will continue to monitor.
--- NOTE | 2017-05-29 10:35 | NUR ---
MIDLINE REMOVED PER DOCTOR LUEVANO. PT PICKED UP BY [facility] VIA AMBULANCE AND DISCHARGE TO [facility]. REPORT GIVEN TO NURSE ORTEGA FROM [facility]. DISCHARGE PAPER WORK GIVEN TO [facility]. PT DAUGHTER PRESENT DURING DISCHARGE AND WILL ACCOMPANY PT.
[2017-05-29 10:49] VITALS: BP 151/57
[2017-05-29] MEDS: ONDANSETRON 4 MG/2 ML VIAL IV PRN ×2 (12:13→21:32)
--- NOTE | 2017-05-29 12:20 | NUR ---
Zofran administered as ordered for emesis x1 and nausea. Will continue to monitor.
[2017-05-29 14:48] LABS: BASOPHILS % (AUTO) 0.4 % (0.0-2.0); EOSINOPHILS % (AUTO) 0.2 % (0.0-7.0); HEMATOCRIT 26.9 % (31.2-41.9); HEMOGLOBIN 8.9 g/dL (10.9-14.3); LYMPHOCYTES # (AUTO) 1.5 K/uL (20.0-40.0); LYMPHOCYTES % (AUTO) 12.4 % (20.5-51.5); MEAN CORPUSCULAR HEMOGLOBIN 27.5 uug (24.7-32.8); MEAN CORPUSCULAR HGB CONC 33 g/dL (32.3-35.6); MEAN CORPUSCULAR VOLUME 82.6 fL (75.5-95.3); MONOCYTES # (AUTO) 0.6 K/uL (2.0-10.0); MONOCYTES % (AUTO) 5.4 % (0.0-11.0); NEUTROPHILS # (AUTO) 9.7 K/uL (1.8-8.9); NEUTROPHILS % (AUTO) 81.6 % (38.5-71.5); PLATELET COUNT (AUTO) 533 K/uL (179-408); RED BLOOD CELL COUNT(AUTO) 3.25 MIL/uL (3.63-4.92); WHITE BLOOD COUNT (AUTO) 11.9 K/uL (3.8-11.8)
[2017-05-29 14:54] VITALS: BP 149/57
[2017-05-29] MEDS ORDERED: PANT40TA2 PO (17:26)
[2017-05-29] MEDS ORDERED: POTA10CA43 PO (17:26)
[2017-05-29] MEDS ORDERED: LEVO500T2 PO (17:26)
[2017-05-29] MEDS ORDERED: FERR324T PO (17:26)
[2017-05-29] MEDS ORDERED: VALS80TA2 PO (17:26)
[2017-05-29] MEDS ORDERED: LINE600T PO (17:26)
[2017-05-29] MEDS ORDERED: FURO-152 PO (17:26)
[2017-05-29] MEDS ORDERED: CYAN10009 PO (17:26)
[2017-05-29] MEDS ORDERED: GABA-532 PO (17:26)
[2017-05-29] MEDS ORDERED: DOCU-141 PO (17:26)
--- NOTE | 2017-05-29 19:35 | NUR ---
PT AXO X4. DENIES ANY PAIN OR SOB AT THIS TIME. ON O2 AT 2LPM VIA NC. RIGHT UPPER ARM MIDLINE WITH DOUBLE LUMEN INTACT. SAFETY MEASURE INITIATED AND CALL MATOS WITHIN REACHED. PT WILL BE DISCHARGE AT [facility].
[2017-05-29 20:00] VITALS: BP 146/56
[2017-05-29] MEDS: FLUCONAZOLE 200 MG/NS 100ML IV 100 MG in PREMIXED 1 EACH IV SCH (20:17)
[2017-05-29] MEDS ORDERED: SIMETHICONE 40 MG/0.6 ML 30 ML BOTTLE MC ONE (20:44)
[2017-05-29] MEDS ORDERED: PROPOFOL 200 MG/20 ML BOTTLE IV ONE (20:44)
== END 2017-05-29 20:45 | DRG 871 ==
LOC: ER 01:32 → TELE 06:18 → MED 05-22 13:02
PROVIDERS: ADMIT Internal Medicine; ATTEND Nurse Practitioner Acute Care
PROC: 30233N1 Transfusion of Nonautologous Red Blood Cells into Peripheral Vein, Percutaneous Approach (ICD-10-PCS; 2017-05-21)
PROC: 05H533Z Insertion of Infusion Device into Right Subclavian Vein, Percutaneous Approach (ICD-10-PCS; 2017-05-24)
PROC: 0DB68ZX Excision of Stomach, Via Natural or Artificial Opening Endoscopic, Diagnostic (ICD-10-PCS; principal; 2017-05-27 16:36)
PROC: 0DBL8ZX Excision of Transverse Colon, Via Natural or Artificial Opening Endoscopic, Diagnostic (ICD-10-PCS; 2017-05-27 16:36)
DX: A41.51 Sepsis due to Escherichia coli [E. coli] (principal); I50.31 Acute diastolic (congestive) heart failure; C78.7 Secondary malignant neoplasm of liver and intrahepatic bile duct; C78.89 Secondary malignant neoplasm of other digestive organs; C79.70 Secondary malignant neoplasm of unspecified adrenal gland; K57.31 Diverticulosis of large intestine without perforation or abscess with bleeding; E66.01 Morbid (severe) obesity due to excess calories; D68.59 Other primary thrombophilia; E87.1 Hypo-osmolality and hyponatremia; B37.49 Other urogenital candidiasis; N39.0 Urinary tract infection, site not specified; Z68.41 Body mass index [BMI] 40.0-44.9, adult; D62 Acute posthemorrhagic anemia; C54.1 Malignant neoplasm of endometrium; Z90.710 Acquired absence of both cervix and uterus; Z79.82 Long term (current) use of aspirin; Z79.899 Other long term (current) drug therapy; D47.3 Essential (hemorrhagic) thrombocythemia; K44.9 Diaphragmatic hernia without obstruction or gangrene; Z71.3 Dietary counseling and surveillance; E83.42 Hypomagnesemia; B95.2 Enterococcus as the cause of diseases classified elsewhere; Z16.21 Resistance to vancomycin; E83.51 Hypocalcemia; Z74.09 Other reduced mobility; E11.42 Type 2 diabetes mellitus with diabetic polyneuropathy; E03.9 Hypothyroidism, unspecified; I11.0 Hypertensive heart disease with heart failure; K52.9 Noninfective gastroenteritis and colitis, unspecified; D89.9 Disorder involving the immune mechanism, unspecified; D63.0 Anemia in neoplastic disease; E53.8 Deficiency of other specified B group vitamins; F32.9 Major depressive disorder, single episode, unspecified; G89.29 Other chronic pain; K59.00 Constipation, unspecified; M51.36 Other intervertebral disc degeneration, lumbar region
CPT/HCPCS: 36415; 36569; 71045; 71260; 74018; 82746; 83550; 83605; 83690; 83735; 84100; 84443; 85025; 85610; 86850; 86900; 86901; 86920; 87040; 87077; 87086; 88342; 90715; 93005; 93307; A4217; A4663; C9113; J0696; J1170; J1450; J1815; J1940; J1956; J2020; J2270; J2405; J2543; J3370; J3475; J3480; J3490; J7030; J7040; J7050; J7060; P9016-BL; P9021; Q9967